=== PATIENT | male | born 1955 | race Asian ===

== ENCOUNTER 2022-01-18 14:33 | Emergency (ER) | payer OTHER, MEDICARE ==
[~2022-01-18] VITALS: Ht 170.2 cm; Wt 65.8 kg
[~2022-01-18 14:33] MED LIST: ATEN-41 PO; CETI10CA PO
[2022-01-18 14:49] VITALS: BP_SYST 127
[2022-01-18] MEDS ORDERED: PSEU30TA36 PO (16:04)
[2022-01-18] MEDS ORDERED: ALBMDI INH (16:04)
[2022-01-18 16:20] VITALS: BP_SYST 122
--- NOTE | 2022-01-18 16:23 | NUR ---
Patient given written and verbal discharge instructions and verbalizes understanding. JENNIFER verdin MD discussed with patient the results and treatment provided. Patient in stable condition. ID arm band removed. Rx of pseudophed, albuterlol given. Patient educated on pain management and to follow up with PMD. Pain Scale 0. Opportunity for questions provided and answered. Medication side effect fact sheet provided.
== END 2022-01-18 16:20 | disposition home or self-care (01) ==
LOC: SED 14:33
DX: J20.9 Acute bronchitis, unspecified (principal); R05.9 Cough, unspecified; J02.9 Acute pharyngitis, unspecified; I10 Essential (primary) hypertension; Z88.8 Allergy status to other drugs, medicaments and biological substances; Z79.899 Other long term (current) drug therapy; Z20.822 Contact with and (suspected) exposure to COVID-19
CPT/HCPCS: 36415; 71045; 99284

== ENCOUNTER 2022-07-16 08:57 | Emergency (ER) | payer OTHER, MEDICARE ==
[~2022-07-16] VITALS: Ht 167.6 cm; Wt 65.8 kg
[~2022-07-16 08:57] MED LIST changes: +ALBMDI INH; +PSEU30TA36 PO
[2022-07-16 09:00] VITALS: BP_SYST 137
--- NOTE | 2022-07-16 09:00 | NUR ---
BROUGHT BACK TO BED #4 AND TRIAGED. REPORT GIVEN TO TERRI
--- NOTE | 2022-07-16 09:12 | NUR ---
PATIENT AMBULATORY TO ER PLACE IN ROOM 4 C/O ABDOMINAL DISCOMFORT/ BLOADED, PLACE ON [employer]AL[employer] REPRESENTATIVE, SON AT BEDSIDE, AWAITING FOR EDP FOR INITIAL ASSESSMENT.
--- NOTE | 2022-07-16 09:58 | NUR ---
edp at bedside for initial assessment.
[2022-07-16] MEDS ORDERED: MAG HYDROX/AL HYDROX/SIMETH 30 ML, DICYCLOMINE HCL 20 MG, LIDOCAINE VISCOUS 2% 15ML (PO... PO ONE ×3 (10:15)
--- NOTE | 2022-07-16 10:21 | NUR ---
patrient taken to ct scan.
[2022-07-16 10:32] LABS: BILIRUBIN,URINE NEGATIVE (NEGATIVE); BLOOD, URINE NEGATIVE (NEGATIVE); CLARITY/URINE CLEAR (CLEAR); COLOR,URINE YELLOW (YELLOW); GLUCOSE,URINE NEGATIVE (NEGATIVE); KETONES,URINE NEGATIVE (NEGATIVE); LEUKOCYTE ESTERASE ,URINE NEGATIVE (NEGATIVE); NITRITE, URINE NEGATIVE (NEGATIVE); PROTEIN URINE NEGATIVE (NEGATIVE); UROBILINOGEN,URINE 0.2 (0.2-1.0)
[2022-07-16 11:20] LABS: BASOPHILS # (AUTO) 0.1 K/uL (0.0-0.2); BASOPHILS % (AUTO) 1.1 % (0.0-2.0); EOSINOPHILS # (AUTO) 0.2 K/uL (0.0-0.4); EOSINOPHILS % (AUTO) 3.6 % (0.0-4.0); HEMATOCRIT 38.3 % (36-54); HEMOGLOBIN 12.8 g/dL (14.0-18.0); LYMPHOCYTES # (AUTO) 1.8 K/uL (1.0-5.5); LYMPHOCYTES % (AUTO) 33.5 % (20.5-51.5); MEAN CORPUSCULAR HEMOGLOBIN 32 pg (27-31); MEAN CORPUSCULAR HGB CONC 34 % (32-36); MEAN CORPUSCULAR VOLUME 95 fL (79.0-98.0); MONOCYTES # (AUTO) 0.4 K/uL (0.0-1.0); MONOCYTES % (AUTO) 7.5 % (1.7-9.3); NEUTROPHILS # (AUTO) 2.9 K/uL (1.8-7.7); NEUTROPHILS % (AUTO) 54.3 % (40.0-70.0); PLATELET COUNT (AUTO) 180 K/uL (130-430); RED BLOOD CELL COUNT(AUTO) 4.04 MIL/uL (4.2-6.2); RED CELL DISTRIBUTION WIDTH 13.2 % (9.0-15.0); WHITE BLOOD COUNT (AUTO) 5.4 K/uL (4.8-10.8)
[2022-07-16 11:29] LABS: CALCIUM 8.8 mg/dL (8.4-11.0); CREATININE 0.93 mg/dL (0.55-1.30)
[2022-07-16 11:33] LABS: ALBUMIN 3.4 g/dL (3.4-4.8); TOTAL BILIRUBIN 0.6 mg/dL (0.0-1.0)
[2022-07-16] MEDS ORDERED: LACT10SO7 PO (13:48)
[2022-07-16 14:17] VITALS: BP_SYST 110
--- NOTE | 2022-07-16 14:18 | NUR ---
Patient given written and verbal discharge instructions and verbalizes understanding. ER MD discussed with patient the results and treatment provided. Patient in stable condition. ID arm band removed. Rx of LACTULOSE given. Patient educated on pain management and to follow up with PMD. Pain Scale 0/10. Opportunity for questions provided and answered. Medication side effect fact sheet provided.
== END 2022-07-16 14:18 | disposition home or self-care (01) ==
LOC: SED 08:57
DX: K59.00 Constipation, unspecified (principal); R10.9 Unspecified abdominal pain; R19.7 Diarrhea, unspecified; I10 Essential (primary) hypertension; Z88.8 Allergy status to other drugs, medicaments and biological substances; Z79.899 Other long term (current) drug therapy
CPT/HCPCS: 99285; 74176; 71045; 80053; 83690; 85025; 36415; 93005; 76376; 81003; J2001